=== PATIENT | female | born 1975 | race Two or more races ===

== ENCOUNTER 2017-09-11 18:55 | Emergency (ER) | payer MEDICAID, OTHER ==
[2017-09-11] MEDS: KETOROLAC 15 MG INJ IV (19:50)
[2017-09-11] MEDS: ACETAMINOPHEN 325 MG TAB PO (19:51)
[2017-09-11] MEDS: SOD CHLORIDE 0.9% 500 ML IV (19:51)
== END 2017-09-11 21:41 | disposition home or self-care (01) ==
LOC: E/R 18:55
DX: B34.9 Viral infection, unspecified (principal)
CPT/HCPCS: 96374; 99284-25

== ENCOUNTER 2017-09-15 17:48 | Inpatient (IN) | payer MEDICAID ==
[2017-09-15] MEDS: SODIUM CHLORIDE 0.9% 1L BAG IV* (18:58)
[2017-09-15] MEDS: ACETAMINOPHEN 500 MG TAB PO (18:58)
[2017-09-15] MEDS: KETOROLAC 30 MG INJ IV (18:58)
[2017-09-15 19:13] LABS: HEMATOCRIT 35.5 % (37.0-47.0); HEMOGLOBIN 12.1 g/dl (12.0-16.0); MEAN CORPUSCULAR HEMOGLOBIN 31.8 pg (29.0-33.0); MEAN CORPUSCULAR HGB CONC 34.1 g/dl (32.0-37.0); MEAN CORPUSCULAR VOLUME 93.4 fl (82.0-101.0); MEAN PLATELET VOLUME 10.8 fl (7.4-10.4); PLATELET COUNT 262 10^3/UL (140-415); RED CELL DISTRIBUTION WIDTH 13.1 % (11.5-14.5)
[2017-09-15 19:13] LABS: WHITE BLOOD COUNT 11.5 10^3/ul (4.8-10.8)
[2017-09-15 19:15] LABS: ADD MAN DIFF? YES; ADD UMIC YES; POSITIVE DIFF @See below; UR ASCORBIC ACID 40 mg/dL (NEGATIVE); UR BACTERIA FEW /HPF (NONE SEEN); UR BILIRUBIN (Dip) NEGATIVE (NEGATIVE); UR BLOOD (Dip) NEGATIVE (NEGATIVE); UR CLARITY SLIGHTLY CLOUDY (CLEAR); UR COLOR YELLOW (YELLOW); UR GLUCOSE (Dip) NEGATIVE (NEGATIVE); UR KETONES (Dip) NEGATIVE (NEGATIVE); UR LEUKOCYTE ESTERASE (Dip) 1+ Leu/ul (NEGATIVE); UR NITRITE (Dip) POSITIVE (NEGATIVE); UR RBC 5 /HPF (0-5); UR SQUAMOUS EPITHELIAL CELL FEW /HPF (FEW); UR TOTAL PROTEIN (Dip) 1+ mg/dl (NEGATIVE); UR UROBILINOGEN (Dip) NEGATIVE (NEGATIVE); UR WBC 23 /HPF (0-5)
[2017-09-15 19:33] LABS: BAND NEUTROPHILS % (M) 9 % (0-4); BASOPHIL #M 0.1 10^3/ul (0.0-0.0); BASOPHILS % (M) 1 % (0-2); ERYTHROBLAST% (NRBC) (M) 1 % (0-0); LYMPHOCYTES #M 0.6 10^3/ul (0.8-2.9); LYMPHOCYTES % (M) 6 % (15-51); METAMYELOCYTES #M 0.1 10^3/ul (0.0-0.0); METAMYELOCYTES %M 1 % (0-0); MONOCYTE #M 0.8 10^3/ul (0.3-0.9); MONOCYTES % (M) 7 % (0-11); PLATELET ESTIMATE NORMAL; SEG NEUT #M 8.9 10^3/ul (1.6-7.5); SEGMENTED NEUTROPHILS (M) % 76 % (39-77)
[2017-09-15 19:35] LABS: LACTIC ACID 1.8 mmol/L (0.5-2.0)
[2017-09-15 19:36] LABS: ALANINE AMINOTRANSFERASE 86 IU/L (13-69); ALBUMIN 3.4 g/dl (3.3-4.9); ALBUMIN/GLOBULIN RATIO 0.89; ALKALINE PHOSPHATASE 189 IU/L (42-121); ANION GAP 14 (8-16); ASPARTATE AMINO TRANSFERASE 49 IU/L (15-46); BILIRUBIN,INDIRECT 0.1 mg/dl (0-1.1); BILIRUBIN,TOTAL 0.1 mg/dl (0.2-1.3); BLOOD UREA NITROGEN 5 mg/dl (7-20); CALCIUM 8.7 mg/dl (8.4-10.2); CARBON DIOXIDE 26 mmol/L (21-31); CHLORIDE 104 mmol/L (97-110); CREATININE 0.78 mg/dl (0.44-1.00); GLUCOSE 122 mg/dl (70-220); POTASSIUM 3.5 mmol/L (3.5-5.1); SODIUM 140 mmol/L (135-144); TOTAL PROTEIN 7.2 g/dl (6.1-8.1)
[2017-09-15] MEDS: CEFTRIAXONE 1 GM/50 ML (PMX) 50 ML IVPB (19:42)
[2017-09-15 19:45] LABS: INR 1.02; PROTIME 13.5 Sec (11.9-14.9); PT RATIO 1.1
[2017-09-15 19:49] LABS: TROPONIN-I < 0.012 ng/ml (0.00-0.12)
[2017-09-15] MEDS: LEVALBUTEROL (NEB) 1.25 MG/0.5 ML AMP HHN (21:41)
[2017-09-15] MEDS: IPRATROPIUM (NEB) 0.5 MG/2.5 ML AMP HHN (21:42)
[2017-09-16] MEDS ORDERED: NACL 0.9% 3 ML SYG IV (00:30)
[2017-09-16] MEDS ORDERED: ONDANSETRON 4 MG INJ IV (00:30)
[2017-09-16] MEDS ORDERED: DOCUSATE SODIUM 100 MG CAP PO (00:30)
[2017-09-16] MEDS ORDERED: BISACODYL (EC) 5 MG TAB PO (00:30)
[2017-09-16] MEDS: ACETAMINOPHEN 325 MG TAB PO ×4 (00:45→18:41)
[2017-09-16] MEDS: SOD CHLORIDE 0.9% 500 ML IV (00:49)
[2017-09-16] MEDS ORDERED: LEVOFLOXACIN 750MG/D5W (PMX) 150 ML IVPB (04:30)
[2017-09-16] MEDS: PIPER-TAZO 3.375 GM IV (PMX) 100 ML IVPB ×3 (05:05→18:33)
[2017-09-16 07:47] LABS: D-DIMER 1703.97 ng/ml (<460)
[2017-09-16] MEDS ORDERED: CEFTRIAXONE 1 GM/50 ML (PMX) 50 ML IVPB (19:00)
[2017-09-17] MEDS: PIPER-TAZO 3.375 GM IV (PMX) 100 ML IVPB ×4 (00:07→17:57)
[2017-09-17 06:40] LABS: ADD MAN DIFF? NO
[2017-09-17 06:49] LABS: WHITE BLOOD COUNT 10.5 10^3/ul (4.8-10.8)
[2017-09-17 06:49] LABS: BASOPHILS % 0.4 % (0.0-2.0); EOSINOPHILS % 0.4 % (0.0-7.0); HEMATOCRIT 29.8 % (37.0-47.0); HEMOGLOBIN 9.9 g/dl (12.0-16.0); LYMPHOCYTES # 1.4 10^3/ul (0.8-2.9); LYMPHOCYTES % 12.9 % (15.0-51.0); MEAN CORPUSCULAR HEMOGLOBIN 31.5 pg (29.0-33.0); MEAN CORPUSCULAR HGB CONC 33.2 g/dl (32.0-37.0); MEAN CORPUSCULAR VOLUME 94.9 fl (82.0-101.0); MEAN PLATELET VOLUME 10.5 fl (7.4-10.4); MONOCYTES % 9.4 % (0.0-11.0); NEUTROPHILS % 75.7 % (39.0-77.0); PLATELET COUNT 303 10^3/UL (140-415); RED BLOOD COUNT 3.14 10^6/ul (4.20-5.40); RED CELL DISTRIBUTION WIDTH 13.4 % (11.5-14.5)
[2017-09-17 06:56] LABS: HEMOGLOBIN A1C 5.4 % (0-5.9)
[2017-09-17 07:06] LABS: ALANINE AMINOTRANSFERASE 49 IU/L (13-69); ALBUMIN 2.8 g/dl (3.3-4.9); ALBUMIN/GLOBULIN RATIO 0.84; ALKALINE PHOSPHATASE 138 IU/L (42-121); ANION GAP 12 (8-16); ASPARTATE AMINO TRANSFERASE 25 IU/L (15-46); BILIRUBIN,INDIRECT 0.2 mg/dl (0-1.1); BILIRUBIN,TOTAL 0.2 mg/dl (0.2-1.3); BLOOD UREA NITROGEN 5 mg/dl (7-20); CARBON DIOXIDE 25 mmol/L (21-31); CHLORIDE 107 mmol/L (97-110); CHOL/HDL RATIO 6.5 RATIO; CHOLESTEROL 112 mg/dl (100-200); GLUCOSE 104 mg/dl (70-220); HDL CHOLESTEROL 17 mg/dl (34-88); LDL CHOLESTEROL,CALCULATED 61 mg/dl; MAGNESIUM 2.2 mg/dl (1.7-2.5); POTASSIUM 3.5 mmol/L (3.5-5.1); SODIUM 140 mmol/L (135-144); TOTAL PROTEIN 6.1 g/dl (6.1-8.1); TRIGLYCERIDES 170 mg/dl (0-149)
[2017-09-17 11:07] LABS: IRON 31 ug/dl (35-150)
[2017-09-17 11:16] LABS: % IRON SATURATION 13 % SAT (22-52); TOTAL IRON BINDING CAPACITY 231 ug/dl (241-421)
[2017-09-17 13:51] LABS: HEPATITIS C VIRAL ANTIBODY NEGATIVE (NEGATIVE)
[2017-09-17] MEDS: ACETAMINOPHEN 325 MG TAB PO (20:04)
[2017-09-18] MEDS: PIPER-TAZO 3.375 GM IV (PMX) 100 ML IVPB ×3 (01:01→12:23)
[2017-09-18] MEDS: TRIMETHOPRIM/SULFAMETHOX (DS) TAB PO (12:23)
[2017-09-18] MEDS: SOD FERRIC GLUC COMPLX 125 MG in SOD CHLORIDE 0.9% 100 ML IVPB (13:19)
== END 2017-09-18 16:32 | disposition home or self-care (01) | DRG 690 ==
LOC: PP2 09-17 14:37 → FTE 17:48 → MS4 22:21
DX: N12 Tubulo-interstitial nephritis, not specified as acute or chronic (principal); R74.0 Nonspecific elevation of levels of transaminase and lactic acid dehydrogenase [LDH]; R74.8 Abnormal levels of other serum enzymes; B96.20 Unspecified Escherichia coli [E. coli] as the cause of diseases classified elsewhere; D50.9 Iron deficiency anemia, unspecified; E66.3 Overweight; E86.0 Dehydration
CPT/HCPCS: 36415; 71045; 76705; 76775; 80053; 80061; 81001; 82728; 83036; 83540; 83605; 83735; 84443; 84484; 84703; 85025; 85378; 85610; 85730; 86803; 87040; 87086; 87400; 87880; 93005; 93970; 94664; 96374; 96375; 99285-25